=== PATIENT | female | born 1945 | race Caucasian/White ===

== ENCOUNTER 2018-05-05 07:13 | Day surgery (SDC) | payer MEDICARE ==
[2018-05-02 09:49] VITALS: BMI 27.4
--- NOTE | 2018-05-04 12:52 | HP ---
HISTORY AND PHYSICAL CHIEF COMPLAINT: Left shoulder pain and stiffness. HISTORY OF PRESENT ILLNESS: The patient is a 72-year-old, right-hand dominant, retired female who presents with progressive left shoulder pain and stiffness after a minor injury 3 months ago. She notes it has progressed. She has pain with overhead use and at night. She has tried therapy without much relief. PAST MEDICAL HISTORY: Otherwise negative. PAST SURGICAL HISTORY: Negative. CURRENT MEDICATIONS: Levothyroxine. ALLERGIES: She notes to allergy to CLINDAMYCIN. FAMILY HISTORY: Significant for cancer. SOCIAL HISTORY: Negative for current tobacco or alcohol use. REVIEW OF SYSTEMS: Sixteen-point review of systems otherwise reviewed and is noncontributory. PHYSICAL EXAMINATION: On examination, the patient is approximately 5 feet 2 inches, 150 pounds of mesomorphic habitus. HEENT exam is nonfocal. Neck is supple. Active range of motion of the left shoulder. Forward elevation 100 degrees, external rotation with arm at side 45 degrees, internal rotation to L4. Passively I am able to forward elevate her to 100 degrees. Joaquin, impingement sign, and Neer sign are positive. Her distal neurovascular exam otherwise appears intact in the left upper extremity. X-rays of the left shoulder obtained in the office show minimal degenerative changes. IMPRESSION: Symptomatic left shoulder adhesive capsulitis. RECOMMENDATIONS: I talked to the patient at length regarding her condition and treatment options. At this point, she opts to proceed with manipulation under anesthesia with subacromial cortisone injection. Risks and benefits were discussed at length in layman's terms. We will likely perform that as an outpatient procedure utilizing IV sedation. MMDEONNAL / IJN: [id number] / AARON
[~2018-05-05 07:13] MED LIST: HYDROmorphone 0.5 MG/0.5 ML SYRINGE IVP PRN; LACTATED RINGERS 1,000 ML IV SCH; MIDAZOLAM 2 MG/2 ML VIAL IV PRN; ceFAZolin 1,000 MG in DEXTROSE/WATER 1 50ML.BAG IV ONE
[2018-05-05] MEDS ORDERED: LIDOCAINE 1% 20 ML VIAL (10MG/ML) FOR IV START INTRADERMA ONE (07:40)
[2018-05-05] MEDS ORDERED: DEXAMETHASONE SOD PHOSPHATE 10 MG/ML 1 ML VIAL IV ONE (07:41)
[2018-05-05] MEDS ORDERED: ONDANSETRON 4 MG/2 ML VIAL IVP ONE (07:43)
[2018-05-05] MEDS ORDERED: PROPOFOL 10 MG/ML 20 ML VIAL IV ONE (08:56)
--- NOTE | 2018-05-05 09:07 | P.OP ---
Date of Procedure: 05/05/18 Preoperative Diagnosis: Left shoulder adhesive capsulitis Postoperative Diagnosis: Same Procedure(s) Performed: Manipulation under anesthesia left shoulder with subacromial cortisone injection Anesthesia: MAC Surgeon: Jeffrey Zapata Estimated Blood Loss (ml): 0 Pathology: none sent Condition: stable Disposition: PACU Indications for Procedure: The patient's a 72-year-old female presents with progressive left shoulder stiffness and pain despite conservative measures. Clinically she is noted have significant adhesive capsulitis. A discussion of the risks and benefits of manipulation under anesthesia was made with patient. She opted to proceed. Specific risks of this procedure to include fracture, dislocation, possible tendon rerupture, possible recurrence of stiffness and need for subsequent procedures was discussed. Informed consent was obtained. Operative Findings: As below Description of Procedure: The patient was brought to the recovery room, and after induction of IV sedation I gently manipulated her left shoulder. First with the arm at the side I obtain full external rotation. Moderate adhesions were encountered. I then obtained full forward elevation. Again there were moderate adhesions encountered. I felt this was adequate release. The posterior aspect the shoulder was prepped with ChloraPrep. 80 mg of Depo-Medrol along with 5 mL of quarter percent plain Marcaine was injected into the subacromial space. The patient was then monitored until fully awake. No complications were incurred. There was no blood loss.
[2018-05-05 09:18] VITALS: RESP 16; TEMP 98
[2018-05-05] MEDS ORDERED: HYDROmorphone 1 MG/ML 1 ML SYRINGE IVP ONE ×2 (09:36→09:42)
[2018-05-05 10:33] VITALS: BP 149/83; PULSE 72
== END 2018-05-05 10:35 | disposition home or self-care (01) ==
LOC: OR 07:13
PROVIDERS: ATTEND Orthopaedic Surgery
DX: M75.02 Adhesive capsulitis of left shoulder (principal); M19.012 Primary osteoarthritis, left shoulder; E07.9 Disorder of thyroid, unspecified; Z79.890 Hormone replacement therapy; Z88.1 Allergy status to other antibiotic agents
CPT/HCPCS: 23700; J1100; J2405; J1170; J2704